=== PATIENT | female | born 1970 | race Caucasian/White ===

== ENCOUNTER 2017-07-12 08:26 | Emergency (ER) | payer BC ==
[2017-07-12 09:18] VITALS: BP 137/84
[2017-07-12] MEDS ORDERED: Lidocaine 2% 10 ML* VIAL INJ ONE (09:26)
[2017-07-12] MEDS ORDERED: Lidocaine 2% PF * 5 ML VIAL INJ ONE (09:32)
--- NOTE | 2017-07-12 09:33 | UC ---
Laceration HPI - HPI Summary HPI Summary: R 5th finger lac sustained this am just prior to arrival. Cut finger on a can of cat food. + bleeding, controlled with pressure. No p/d/w. Pt is R handed. Last tet immun < 5 yrs. - History Of Current Complaint Chief Complaint: UCLaceration Stated Complaint: FINGER LAC Time Seen by Provider: 07/12/17 09:04 Hx Obtained From: Patient Hx Last Menstrual Period: with in the month - Allergies/Home Medications Allergies/Adverse Reactions: Allergies Allergy/AdvReac Type Severity Reaction Status Date / Time Erythromycin AdvReac Intermediate Vomiting Verified 07/12/17 09:18 PMH/Surg Hx/FS Hx/Imm Hx - Additional Past Medical History Additional PMH: taking pain medications for knee issue Previously Healthy: No - see above - Surgical History Surgical History: Yes Surgery Procedure, Year, and Place: BLADDER SLING WITH MESH-PER Embrane TOT-POLYPROPALINE TAPE OK'D FOR MRI-REPORT SCANNED INTO PT FILE - Family History Known Family History: Positive: None - Social History Alcohol Use: Occasionally Substance Use Type: None Smoking Status (MU): Light Every Day Tobacco Smoker Type: Cigarettes Amount Used/How Often: 1/2 ppd Have You Smoked in the Last Year: Yes When Did the Patient Quit Smoking/Using Tobacco: 6 YRS AGO - Immunization History Most Recent Influenza Vaccination: current Most Recent Tetanus Shot: UTD Review of Systems Constitutional: Negative Skin: Other - see hpi Eyes: Negative ENT: Negative Respiratory: Negative Cardiovascular: Negative Gastrointestinal: Negative Genitourinary: Negative Motor: Negative Neurovascular: Negative Musculoskeletal: Negative - 5th finger pain 2/2 lac Neurological: Negative Psychological: Anxious - appropriately anxious Is Patient Immunocompromised?: No All Other Systems Reviewed And Are Negative: Yes Physical Exam Triage Information Reviewed: Yes Appearance: Thin Vital Signs: Initial Vital Signs Temp 98.7 F 07/12/17 09:02 Pulse 106 07/12/17 09:02 Resp 18 07/12/17 09:02 BP 137/84 07/12/17 09:02 Vital Signs Reviewed: Yes Eye Exam: Normal - grossly normal ENT Exam: Normal - grossly normal Neck exam: Normal Respiratory Exam: Normal - no tachypnea no dyspnea Cardiovascular Exam: Normal Cardiovascular: Positive: Brisk Capillary Refill - cr < 2 sec distal 5th finger Abdominal Exam: Normal - sitting up in chair w/o diff Musculoskeletal Exam: Other - see skin o/w ok Skin Exam: Other - no diaphoresis distal right finger lac lateral (rad) dip. approx 1.2cm x 0.3cm x 0.3cm d. no tendon expos. moves ok. distal sesn LT present. Laceration Course/Dx - Course/Dx Course Of Treatment: wound irrigated by RN. Procedure: 2% lidocaine digital block with 2cc lidocaine. wound irrigated by RN. Explored gently by myself. W/ o rustam exposed tendon. Moves joints ok at all levels, dip limited 2/2 pain. Repaired via four 4.0 surgipro SI sutures. Tolerated well. Blood loss scant. Reviewed wound care instructions. Questions as posed answered to the best of my ability. Splint as needed during the day. - Differential Dx - Laceration/Wound Provider Diagnoses: R 5th finger laceration with suture repair Discharge - Discharge Plan Condition: Stable Disposition: HOME Prescriptions: Cephalexin CAP* [Keflex 500 CAP*] 500 mg PO TID #15 cap Fluconazole [Diflucan 150 MG (NF)] 150 mg PO DAILY #2 tab Patient Education Materials: Care For Your Stitches (ED), Laceration (ED) Referrals: Radha Guardado MD [Primary Care Provider] - Additional Instructions: Ok to get finger wet in shower tomorrow. Do not soak in starding water. Pat dry. Avoid astringents (no rubbing alcoohol, no hydrogen peroxide) Thin layer bacitracin once daily. Clothe or gauze. Avoid "telfa" product(s). Splint during the day as needed to help keep the affected joint area from moving too much. Wound check 2-3 days recommended (here or with primary care physician).
== END 2017-07-12 11:00 | disposition home or self-care (01) ==
LOC: UCCORT 08:26
DX: S61.210A Laceration without foreign body of right index finger without damage to nail, initial encounter (principal); W26.8XXA Contact with other sharp object(s), not elsewhere classified, initial encounter
CPT/HCPCS: 12001; 99212; G0463; J2001